=== PATIENT | female | born 1960 | race Caucasian/White ===

== ENCOUNTER 2017-10-08 00:40 | Emergency (ER) | payer MEDICAID, OTHER ==
[~2017-10-08] VITALS: Ht 165.1 cm; Wt 124.7 kg
[2017-10-08 00:50] VITALS: BP 130/78
--- NOTE | 2017-10-08 01:09 | Emergency Room Report ---
History of Present Illness General Chief Complaint: Chest Pain Source: Patient, EMS Present Illness HPI 56-year-old female brought in for 2 days of "my heart racing and acting funny." Patient states she has home monitor of heart rate and pulse oximetry, states heart rate was running high and then low Denies actual chest pain or shortness of breath right now Denies palpitations States she had a pulmonary embolism 7 years ago, took anticoagulation, currently not on anything Takes baby aspirin and blood pressure medication, but nonbeta richard Allergies: Coded Allergies: AMOXICILLIN (Verified Allergy, Unknown, 10/08/17) HYDROMORPHONE (Verified Allergy, Unknown, 10/08/17) Patient History Past Medical History: HTN, other - previous PE Past Surgical History: none Pertinent Family History: none Social History: Denies: smoking, alcohol use, drug use Now: No Immunizations: UTD Reviewed Nursing Documentation: PMH: Agreed, PSxH: Agreed Nursing Documentation-PMH Hx Cardiac Problems: Yes Hx Hypertension: Yes Hx Cancer: Yes - rectal, remission Review of Systems All Other Systems: negative except mentioned in HPI Physical Exam Vital Signs Date Time Temp Pulse Resp B/P (MAP) Pulse Ox O2 Delivery O2 Flow Rate FiO2 10/08/17 00:43 98.1 84 16 128/76 98 Room Air Sp02 EP Interpretation: reviewed, normal General Appearance: normal inspection, well appearing, no apparent distress, alert, GCS 15, non-toxic, other - tearful, very anxious appearing Head: normocephalic, atraumatic Eyes: bilateral eye PERRL, bilateral eye EOMI ENT: normal ENT inspection, hearing grossly normal, normal pharynx, no angioedema, normal voice, TMs + canals normal, uvula midline, moist mucus membranes Neck: normal inspection, full range of motion, supple, thyroid normal, no meningismus, no bony tend Respiratory: normal inspection, lungs clear, normal breath sounds, no rhonchi, no respiratory distress, no retraction, no accessory muscle use, no wheezing, speaking full sentences Cardiovascular #1: regular rate, rhythm, no edema, no JVD, normal capillary refill Gastrointestinal: normal inspection, normal bowel sounds, non tender, soft, no mass, no peritonitis, non-distended, no guarding, no hernia, no pulsatile mass Genitourinary: no CVA tenderness Musculoskeletal: normal inspection, back normal, normal range of motion, no calf tenderness, pelvis stable, Jesus's Sign negative Neurologic: normal inspection, alert, oriented x3, responsive, 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, motor strength/tone normal, cerebellar normal, normal gait, speech normal Psychiatric: normal inspection, judgement/insight normal, mood/affect normal, no suicidal/homicidal ideation, no delusions Skin: normal inspection, normal color, no rash Lymphatic: normal inspection, no adenopathy Medical Decision Making Diagnostic Impression: Primary Impression: Fast heart beat Additional Impression: Hypokalemia ER Course Patient here for alleged fast and slow heartbeat On monitor patient maintaining average heart rate of 75 EKG is nonischemic, no arrhythmia No signs of right heart strain low Suspicion for acute PE given not tachycardic, not tachypnea at, not hypoxic and in no right heart strain or [id number] on ECG Labs: No leuks, H&H stable, trop WNL Mild hypoK was repleted in ED Significant component of this is anxiety, perhaps d/t past PE Very anxious, tearful, obsessed with home monitoring system despite our monitor and results here Reassured patient Has physician followup today actually ER course: Patient has remained stable during ED stay. Patient is to be discharged to home. Patient is instructed to follow up with their primary care doctor within 5 days. Patient is instructed to follow up with *specialist within 3 days. Strict return precautions discussed with patient such as fever, chills, worsening/severe pain, nausea, vomiting, which may indicate severe illness. Patient verbalizes understanding and agrees with plan. Please note that this Emergency Department Report was dictated using [employer] assistant technology software, occasionally this can lead to erroneous entry secondary to interpretation by the dictation equipment EKG Diagnostic Results Rate: normal Rhythm: NSR ST Segments: no acute changes ASA given to the pt in ED: No Rhythm Strip Diag. Results EP Interpretation: yes Rate: 75 Rhythm: NSR, no PVC's, no ectopy Last Vital Signs Date Time Temp Pulse Resp B/P (MAP) Pulse Ox O2 Delivery O2 Flow Rate FiO2 10/08/17 00:43 98.1 84 16 128/76 98 Room Air Status: improved Disposition: HOME, SELF-CARE ANT NOLAND M.D. Oct 08, 2017 01:09
[2017-10-08 01:21] LABS: BASOPHILS % (AUTO) 0.6 % (0.0-2.0); EOSINOPHILS % (AUTO) 1.5 % (0.0-3.0); LYMPHOCYTES % (AUTO) 27.7 % (20.0-45.0); MEAN CORPUSCULAR HEMOGLOBIN 29.6 PG (27.0-31.0); MEAN CORPUSCULAR HGB CONC 33.2 G/DL (32.0-36.0); MEAN CORPUSCULAR VOLUME 89 FL (80-99); MEAN PLATELET VOLUME 7.4 FL (6.5-10.1); MONOCYTES % (AUTO) 6.8 % (1.0-10.0); NEUTROPHILS % (AUTO) 63.4 % (45.0-75.0); PLATELET COUNT 193 K/UL (150-450); RED BLOOD COUNT 4.75 M/UL (4.20-5.40); RED CELL DISTRIBUTION WIDTH 11.5 % (11.6-14.8)
[2017-10-08 01:36] LABS: ANION GAP 7 mmol/L (5-15); CALCIUM 9.2 MG/DL (8.5-10.1); CARBON DIOXIDE 29 MMOL/L (21-32); CHLORIDE 103 MMOL/L (98-107); GLOMERULAR FILTRATION RATE 57.1 mL/min (>60); POTASSIUM 3.3 MMOL/L (3.5-5.1); SODIUM 139 MMOL/L (136-145)
[2017-10-08 01:49] LABS: ALANINE AMINOTRANSFERASE 22 U/L (12-78); ASPARTATE AMINO TRANSFERASE 15 U/L (15-37); CKMB 1.2 NG/ML (0.0-3.6); TOTAL PROTEIN 7.4 G/DL (6.4-8.2)
[2017-10-08 02:20] VITALS: BP 128/74
--- NOTE | 2017-10-10 00:25 | Cardiology Report ---
APPROVED REPORT EKG Measurement Heart [id number] Normal sinus rhythm Inferior infarct, age undetermined Cannot rule out Anterior infarct, age undetermined Abnormal ECG
== END 2017-10-08 02:20 | disposition home or self-care (01) ==
LOC: EMR 01:10
DX: R00.0 Tachycardia, unspecified (principal); E87.6 Hypokalemia; I10 Essential (primary) hypertension; Z85.048 Personal history of other malignant neoplasm of rectum, rectosigmoid junction, and anus; Z88.0 Allergy status to penicillin; Z88.8 Allergy status to other drugs, medicaments and biological substances
CPT/HCPCS: 36415; 80053; 82550; 82553; 84484; 85025; 93005; 99284; J8499